=== PATIENT | male | born 1935 | race Caucasian/White ===

== ENCOUNTER 2021-01-02 18:58 | Inpatient (IN) | payer OTHER, SELFPAY ==
[~2021-01-02] VITALS: Ht 180.3 cm; Wt 85.1 kg
--- NOTE | 2021-01-02 19:01 | NUR ---
PT BIB AMBULANCE FOR COMPLAINTS OF RIGHT UPPER TOOTH PAIN SINCE LAST WEEK. 10 PAIN WHEN BITING DOWN. PT IS A&OX4 AND JUST WANTS THE PAIN TO GO AWAY. PT HAS HX OF HTN AND DIABETES
--- NOTE | 2021-01-02 19:02 | NUR ---
Patient to ER bed 03 to gown for evaluation. Side rails up.
[2021-01-02 19:03] VITALS: BP_SYST 121
--- NOTE | 2021-01-02 19:03 | NUR ---
ER at bedside examining patient.
[2021-01-02] MEDS ORDERED: NACL 0.9% 1,000 ML IV ONE (19:15)
[2021-01-02 19:31] LABS: BASOPHILS # (AUTO) 0.1 K/uL (0.0-0.2); BASOPHILS % (AUTO) 0.6 % (0.0-2.0); HEMATOCRIT 29.6 % (36-54); HEMOGLOBIN 9.8 g/dL (14.0-18.0); LYMPHOCYTES % (AUTO) 17.6 % (20.5-51.5); MEAN CORPUSCULAR HEMOGLOBIN 28 pg (27-31); MEAN CORPUSCULAR HGB CONC 33 % (32-36); MEAN CORPUSCULAR VOLUME 85 fL (79.0-98.0); MONOCYTES # (AUTO) 0.9 K/uL (0.0-1.0); MONOCYTES % (AUTO) 7.6 % (1.7-9.3); NEUTROPHILS # (AUTO) 8.6 K/uL (1.8-7.7); NEUTROPHILS % (AUTO) 74.2 % (40.0-70.0); PLATELET COUNT (AUTO) 203 K/uL (130-430); RED BLOOD CELL COUNT(AUTO) 3.49 MIL/uL (4.2-6.2); RED CELL DISTRIBUTION WIDTH 17.5 % (9.0-15.0); WHITE BLOOD COUNT (AUTO) 11.6 K/uL (4.8-10.8)
[2021-01-02 19:40] LABS: ANION GAP 8 (5-15); CHLORIDE 100 mmol/L (98-107); CREATININE 1.63 mg/dL (0.55-1.30); GLUCOSE 111 mg/dL (70-99); POTASSIUM 4.9 mmol/L (3.5-5.1); SODIUM SERUM 133 mmol/L (136-145); UREA NITROGEN, BLOOD 25 mg/dL (8-21)
[2021-01-02 19:46] LABS: ALANINE AMINOTRANSFERASE 21 U/L (12-78); ALBUMIN 2.6 g/dL (3.4-4.8); ASPARTATE AMINOTRANSFERASE 54 U/L (10-37); TOTAL BILIRUBIN 1.3 mg/dL (0.0-1.0)
[2021-01-02 19:55] LABS: INR 1.3 (0.80-1.20); PROTHROMBIN TIME 13.3 SECS (9.5-12.5)
[2021-01-02 21:12] LABS: BILIRUBIN,URINE NEGATIVE (NEGATIVE); BLOOD, URINE NEGATIVE (NEGATIVE); CLARITY/URINE CLEAR (CLEAR); COLOR,URINE YELLOW (YELLOW); GLUCOSE,URINE NEGATIVE (NEGATIVE); KETONES,URINE NEGATIVE (NEGATIVE); LEUKOCYTE ESTERASE ,URINE NEGATIVE (NEGATIVE); NITRITE, URINE NEGATIVE (NEGATIVE); PH,URINE 5.5 (5.0-8.0); PROTEIN URINE TRACE (NEGATIVE); UROBILINOGEN,URINE 0.2 (0.2-1.0)
[2021-01-02 21:29] LABS: BACTERIA,URINE FEW /HPF (None Seen); RBC,URINE NONE SEEN /HPF (0-3); WBC,URINE 0-3 /HPF (0-3)
[2021-01-02 21:30] LABS: MUCUS,URINE 1+ /LPF (None Seen)
--- NOTE | 2021-01-02 22:00 | NUR ---
Patient will be admitted to care of dr. espinoza. Admitted to telemetry unit. Will go to room 104A. Belongings list completed. Complete and up to date summary report printed. SBAR report to be given at bedside with opportunity for questions.
[2021-01-02] MEDS ORDERED: cefTRIAXone 1 GM in D5W 50 ML IV ONE (22:15)
[2021-01-02] MEDS ORDERED: cefTRIAXone 1 GM VIAL ONE (22:24)
--- NOTE | 2021-01-02 22:41 | NUR ---
PT IS FULL CODE
--- NOTE | 2021-01-02 22:53 | NUR ---
pts belongsings list done
--- NOTE | 2021-01-02 22:53 | NUR ---
pt does not know all medications, but states he takes about 6-8
--- NOTE | 2021-01-02 22:55 | NUR ---
Transfer to telemetry via ACLS protocol. Licensed nurse present. IV present no signs or symptoms of infiltration.
--- NOTE | 2021-01-02 23:00 | NUR ---
pt.received via the er-dept.pt.presents general weakness/sob per pt.pt.presents iv access intact;location;rt.forearm. iv lock. v/s assessed values wnl.o2-sat%=98%@room air.activity status;bedrest/oob as tolerated.urinal provided to the pt.call light/ telephone presented to the pt.call light explained to pt.fall risk band applied.bed alarm engaged.diet status;cardiac. call light/telephone placed w/in access of the pt.
[2021-01-02 23:15] VITALS: BP_SYST 150
[2021-01-03] MEDS ORDERED: NALOXONE HCL 0.4 MG/ML AMP (NARCAN) IVP PRN
[2021-01-03] MEDS ORDERED: HYDROcodone/ACETAMIN 5-325 MG TAB (NORCO/ VICODIN) PO PRN
[2021-01-03] MEDS ORDERED: ACETAMINOPHEN 325 MG TABLET PO PRN
[2021-01-03] MEDS ORDERED: ALBUTEROL SULFATE 0.083% 2.5 MG/3 ML VIAL.NEB INH PRN
--- NOTE | 2021-01-03 | NUR ---
pt.assessed.v/s assessed values w/in normal limits.no c/o pain,nausea.no requests posited@this hour.pt.assessed for cleanliness. pt.repositioned.general status stable.respiratory status stable.i have attended to the urinal placed w/in access of the pt.call light/telephone places w/in access of the pt.
[2021-01-03 00:11] VITALS: BP_SYST 145
--- NOTE | 2021-01-03 02:00 | NUR ---
pt.assessed.pt.presents quiescent affect;calm,somnolent.per flacc pain mgx pt.absent facial grimaces/body posturing. pt.assessed for cleanliness.pt.repositioned.general status stable.respiratory status stable.i have attended to the urinal. placed w/in access of the pt.call light/telephone placed w/in access of the pt.
[2021-01-03 03:43] VITALS: BP_SYST 145
--- NOTE | 2021-01-03 04:00 | NUR ---
pt.assessed.pt.presents quiescent affect;calm,somnolent.per flacc pain mgx pt.absent facial grimaces/body posturing. pt.assessed for cleanliness.pt.repositioned.call light/telephone placed w/in access of the pt.i have attended to the urinal.placed w/in access of the pt.
[2021-01-03 06:27] LABS: ALANINE AMINOTRANSFERASE 22 U/L (12-78); ALBUMIN 2.4 g/dL (3.4-4.8); ANION GAP 7 (5-15); ASPARTATE AMINOTRANSFERASE 44 U/L (10-37); CALCIUM 7.6 mg/dL (8.4-11.0); CHLORIDE 102 mmol/L (98-107); CREATININE 1.52 mg/dL (0.55-1.30); GLUCOSE 106 mg/dL (70-99); POTASSIUM 3.8 mmol/L (3.5-5.1); SODIUM SERUM 135 mmol/L (136-145); TOTAL BILIRUBIN 1.1 mg/dL (0.0-1.0); UREA NITROGEN, BLOOD 23 mg/dL (8-21)
[2021-01-03 06:28] LABS: BASOPHILS # (AUTO) 0.1 K/uL (0.0-0.2); BASOPHILS % (AUTO) 0.6 % (0.0-2.0); HEMOGLOBIN 9.3 g/dL (14.0-18.0); LYMPHOCYTES # (AUTO) 2.3 K/uL (1.0-5.5); LYMPHOCYTES % (AUTO) 19.8 % (20.5-51.5); MEAN CORPUSCULAR HEMOGLOBIN 28 pg (27-31); MEAN CORPUSCULAR HGB CONC 33 % (32-36); MEAN CORPUSCULAR VOLUME 85 fL (79.0-98.0); MONOCYTES # (AUTO) 0.8 K/uL (0.0-1.0); MONOCYTES % (AUTO) 7.4 % (1.7-9.3); NEUTROPHILS # (AUTO) 8.3 K/uL (1.8-7.7); NEUTROPHILS % (AUTO) 72.2 % (40.0-70.0); PLATELET COUNT (AUTO) 186 K/uL (130-430); RED BLOOD CELL COUNT(AUTO) 3.28 MIL/uL (4.2-6.2); RED CELL DISTRIBUTION WIDTH 17.3 % (9.0-15.0); WHITE BLOOD COUNT (AUTO) 11.5 K/uL (4.8-10.8)
--- NOTE | 2021-01-03 06:33 | NUR ---
Nutrition Update Eleuterio Scale 17 noted. Pt admitted for Elevated D-Dimer, CHF Diet: Cardiac BMI: 24.9 kg/m2 RD to follow per nutrition care standards.
--- NOTE | 2021-01-03 06:45 | NUR ---
pt.assessed.pt.assessed for cleanliness.pt.repositioned.urinal measured placed w/in access of the pt.no c/o pain,nausea. general status stable.respiratory status stable;unlabored:02-sat%=98%.call light/telephone placed w/in access of the pt.
--- NOTE | 2021-01-03 08:30 | NUR ---
Opening note Patient is resting in bed A&O x4 no complaint of pain or discomfort, no signs or symptoms of respiratory distress. IV dislodged, D/C'd and placed clean and dry dressing. Educated patient on plan of care and call light system, patient verbalized understanding will reenforce teaching. Bed is in lowest position, call light within reach, fall and aspiration precautions are in place. Will continue to monitor
[2021-01-03 08:42] VITALS: BP_SYST 108
[2021-01-03] MEDS ORDERED: LIP10 PO (11:19)
[2021-01-03] MEDS ORDERED: ASPI-858 PO (11:19)
[2021-01-03] MEDS ORDERED: POTA20TA83 PO (11:19)
[2021-01-03] MEDS ORDERED: METO25TA3 PO (11:19)
[2021-01-03] MEDS ORDERED: APIX5TAB4 PO (11:19)
[2021-01-03] MEDS ORDERED: FER300L PO (11:22)
[2021-01-03] MEDS ORDERED: OMEP40CA13 PO (11:22)
[2021-01-03 11:26] VITALS: BP_SYST 116
[2021-01-03] MEDS: NORMAL SALINE 5 ML DISP.SYRIN IVF SCH ×2 (14:02→23:33)
[2021-01-03 15:16] VITALS: BP_SYST 105
--- NOTE | 2021-01-03 16:04 | NUR ---
PAGED PAGED SHANNAN FOLEY AT [phone] SPOKE WITH MARLON.
--- NOTE | 2021-01-03 17:31 | NUR ---
IV Re-insertion Restarted on left wrist 22G . Successful after 1 attempts. Will observe for any signs of infiltration. Informed Primary RN - Bettina.
--- NOTE | 2021-01-03 18:13 | NUR ---
RN note Patient informed me that he has an infection in his tooth on the right side, claims it was swollen for the past couple of days. says swelling went down after receiving antibiotics when admitted.
--- NOTE | 2021-01-03 19:15 | NUR ---
OPENING NOTE BEDSIDE REPORT RECEIVED FROM DAYSHIFT NURSE. PATIENT RECEIVED LYING IN BED, AWAKE, NO S/S OF ACUTE DISTRESS NOTED. PATIENT DENIES PAIN. BREATHING EVEN AND UNLABORED. NO SOB. HOB RAISED. IV SITE PATENT, NO SIGNS OF INFILTRATION OR INFECTION NOTED. CALL LIGHT WITH PATIENT, DEMONSTRATED BACK PROPER USE. BED ALARM ON. BED IS LOCKED AND AT LOWEST POSITION. WILL CONTINUE TO MONITOR.
[2021-01-03 20:00] VITALS: BP_SYST 112
--- NOTE | 2021-01-03 20:04 | NUR ---
SPOKE WITH DR QUINTANA RE: OBS AND MED RECON INFORMED DR QUINTANA THAT TONIGHT WILL BE PATIENT'S 2ND MIDNIGHT ON THE FLOOR, MD REPLIED " I THINK THEY IT IS OK FOR TWO NIGHTS OBS". WILL INFORM CHARGE NURSE. ALSO DR QUINTANA INFORMED THAT [facility] WAS PUT IN BY DAY SHIFT, DR QUINTANA SAID SHE WILL LOOK AT IT.
[2021-01-03] MEDS ORDERED: cefTRIAXone 1 GM IVPB PREMIX 50 ML IV ONE (20:11)
[2021-01-03] MEDS ORDERED: VANCOMYCIN HCL 1000 MG/VIAL IV ONE (20:12)
[2021-01-03] MEDS: ATORVASTATIN 10 MG TABLET PO SCH (20:42)
[2021-01-03] MEDS: METOPROLOL SUCCINATE 25 MG TAB.SR.24H (TOPROL XL) PO SCH (20:43)
[2021-01-03] MEDS: VANCOMYCIN HCL 1,000 MG in NS 250 ML IV SCH (20:48)
--- NOTE | 2021-01-03 20:48 | NUR ---
IV ANTIBIOTIC/PRIMARY NS BAG 50ML NS BAG TAKEN FROM PYXIS AND USED PRIMARY BAG, STARTED AT THIS TIME. SCHEDULED VANCOMYCIN 1GM IVPB, STARTED AT THIS TIME, INFUSING WELL, IV SITE PATENT.
[2021-01-03] MEDS: APIXABAN 2.5 MG TABLET PO SCH (20:52)
[2021-01-03] MEDS ORDERED: cefTRIAXone 1 GM IVPB PREMIX 50 ML IV SCH (22:30)
--- NOTE | 2021-01-03 23:34 | NUR ---
ROCEPHIN SCHEDULED ROCEPHIN 1GM IVPB STARTED AT THIS TIME, INFUSING WELL.
[2021-01-04 01:05] VITALS: BP_SYST 102
[2021-01-04] MEDS: NORMAL SALINE 5 ML DISP.SYRIN IVF SCH ×3 (05:54→21:15)
--- NOTE | 2021-01-04 06:32 | NUR ---
CLOSING NOTE PATIENT IN BED, SLEEPING, NO S/S OF ACUTE DISTRESS NOTED. BREATHING EVEN AND UNLABORED. HOB RAISED. IV SITE PATENT, NO SIGNS OF INFILTRATION OR INFECTION NOTED. SKIN WARM AND DRY TO TOUCH. ALL NEEDS MET THROUGHOUT SHIFT. FALL, SAFETY PRECAUTIONS MAINTAINED THROUGHOUT SHIFT. WILL CONTINUE TO MONITOR UNTIL PATIENT CARE IS ENDORSED TO ONCOMING DAYSHIFT NURSE.
[2021-01-04] MEDS ORDERED: OMEPRAZOLE Non-Formulary 20 MG CAPSULE.DR PO SCH (07:00)
[2021-01-04 07:33] VITALS: BP_SYST 129
--- NOTE | 2021-01-04 07:36 | NUR ---
OPENING NOTES PATIIENT AAOX 4. WANTS TO WALK INSIDE THE ROOM BEFORE VITALS SIGNS TAKEN. STABLE AND AFEBRILE. HAS SL AT THE RIGHT FOREARM #20 PATENT'DRY. CALL LIGHTS WITHIN REACH. BED IN LOW POSITION, ALARMED AND LOCKED. INFORMED PATIENT TO CALL FOR ASSISTANCE.
[2021-01-04] MEDS: ASPIRIN 325 MG TABLET PO SCH (08:11)
[2021-01-04] MEDS: PANTOPRAZOLE SODIUM 40 MG TAB PO SCH (08:12)
[2021-01-04] MEDS: ATORVASTATIN 10 MG TABLET PO SCH ×2 (08:12→20:13)
[2021-01-04] MEDS: METOPROLOL SUCCINATE 25 MG TAB.SR.24H (TOPROL XL) PO SCH ×2 (08:13→20:16)
[2021-01-04] MEDS: APIXABAN 2.5 MG TABLET PO SCH ×2 (08:13→20:17)
[2021-01-04 11:21] VITALS: BP_SYST 114
--- NOTE | 2021-01-04 12:16 | NUR ---
Consultation page Consultation called for Dr Garcia and s/Kolton kohler
--- NOTE | 2021-01-04 13:27 | NUR ---
Wool Hat Forming Machine Tender DIESEL ENGINE ASSEMBLER first met with Rn. Devine who stated pt is coherent and will be able to participate an interview. DIESEL ENGINE ASSEMBLER received a referral from Dr. Garibay to see pt. for director of social work. DIESEL ENGINE ASSEMBLER also received a referral from Ingrid Biswas stating pt. is suicidal. DIESEL ENGINE ASSEMBLER introduced self to pt. who was sitting upright eating lunch. Pt. stated he wanted to go home. DIESEL ENGINE ASSEMBLER confirmed pts. demographics. Pt. resides with his with Dementia whom he cares for. Also in the home is his adult daughter who is legally blind and gets dialysis. DIESEL ENGINE ASSEMBLER asked pt. about his support system. Pt. stated his granddaughter, Krys Ramesh lives about 1 mile away, (or 896) and pts. mn-rpi-fj-law also lives nearby are a support system. Both come and visit and check on pt. and . Pt. added Krys is the caregiver for pts. adult daughter, comes to provide care as needed. DIESEL ENGINE ASSEMBLER asked pt. is he has ever been treated or ever been Dx. with any mental illness, depression, anxiety. Pt. stated no. DIESEL ENGINE ASSEMBLER asked pt. if he has ever felt suicidal.Pt. stated he has not. Pt. stated he did not have any questions or needs. DIESEL ENGINE ASSEMBLER will remain available as needed.
[2021-01-04 13:30] VITALS: BP_SYST 116
--- NOTE | 2021-01-04 13:41 | NUR ---
Dietitian Recommendations * Recommend: CCHO, cardiac diet w/ Glucerna BID (chocolate & strawberry) (ONS provides 360 kcals/day & 20g protein/day) * Encourage increase PO intakes Please see Nutritional Assessment for details. WINSOME, RD
[2021-01-04] MEDS: VANCOMYCIN HCL 1,000 MG in NS 250 ML IV SCH (18:12)
--- NOTE | 2021-01-04 19:29 | NUR ---
ENDORSED TO INCOMING NURSE. BRIAN VENCES/TEJ VENCES.
--- NOTE | 2021-01-04 19:30 | NUR ---
OPENING NOTE Received report from day shift RN. Pt is resting in bed. A/O x 4. Breathing is even and unlabored. Does not complain of pain at this time. No s/s of respiratory distress. IV site is intact and patent. Fall and safety precautions are in place with the bed in the lowest position and call light within reach. Will continue to monitor.
[2021-01-04 20:00] VITALS: BP_SYST 104
[2021-01-04] MEDS: AMPICILLIN SODIUM/SULBACTAM NA 1.5 GM in NS 50 ML IV SCH (21:14)
[2021-01-04 23:55] VITALS: BP_SYST 116
[2021-01-05] MEDS: NORMAL SALINE 5 ML DISP.SYRIN IVF SCH ×3 (06:29→21:14)
[2021-01-05] MEDS: AMPICILLIN SODIUM/SULBACTAM NA 1.5 GM in NS 50 ML IV SCH ×3 (06:29→21:13)
--- NOTE | 2021-01-05 06:45 | NUR ---
CLOSING NOTE Pt is resting in bed. No s/s of respiratory distress noted. IV site is intact and patent. No complaints of pain at this time. Fall and safety precautions are in place with the bed alarm on, bed in the lowest position, and call light within reach. All needs met throughout shift. Will continue to monitor until endorsed to day shift RN.
[2021-01-05 08:00] VITALS: BP_SYST 99
--- NOTE | 2021-01-05 08:11 | NUR ---
OPENING NOTES AWAKE IN BED, ALERT AND ORIENTED. NO SHORTNESS OF BREATH ON ROOM AIR. DENIES ANY PAIN. IV. ACCESS INTACT. PATIENT REPORTED AN EPISODE OF BLACK STOOLS IN THE MORNING AND SUSPECTS BLEEDING. INSTRUCTED PATIENT TO SHOW IT TO NURSE NEXT TIME, VERBALIZED UNDERSTANDING. FALL AND SAFETY CHECKS DONE. CALL LIGHT WITHIN REACH. WILL MONITOR.
[2021-01-05] MEDS: METOPROLOL SUCCINATE 25 MG TAB.SR.24H (TOPROL XL) PO SCH ×2 (09:00→20:32)
[2021-01-05] MEDS: ASPIRIN 325 MG TABLET PO SCH (09:14)
[2021-01-05] MEDS: ATORVASTATIN 10 MG TABLET PO SCH ×2 (09:15→20:32)
[2021-01-05] MEDS: PANTOPRAZOLE SODIUM 40 MG TAB PO SCH (09:15)
[2021-01-05] MEDS: APIXABAN 2.5 MG TABLET PO SCH ×2 (09:19→20:33)
--- NOTE | 2021-01-05 10:09 | NUR ---
SS notes: BUILDING MAINTENANCE SUPERVISOR received a suicide referral from Dr. Garibay dated 01/03/21, but there was no perinatal social worker on shfit until 01/04. BUILDING MAINTENANCE SUPERVISOR met with with pt. bedside who was sitting upright eating. Pt. was friendly, talkative and easily participated in this interview. Pt. confirmed the demographics on the facesheet. He wanted to add his granddaughter, Krys Ramesh as an emergency contact, . Pt. stated he is 85 and getting tired. He has his support system that consists of his granddaughter, Krys and his db-upv-if-law. Both reside about a mile away and check on pt. and who has altzhiemers on a regular basis. Pt. also resides with his adult daughter who is blind and receives dialysis. Krys is pts. daughters caregiver. When asked if pt. has been dx. with depression or anxiety, pt. stated no, but as he gets older and with his own health issues, he finds it more challenging to care for everyone.BUILDING MAINTENANCE SUPERVISOR asked if pt. has ever felt suicidal. Pt stated he has not. BUILDING MAINTENANCE SUPERVISOR asked how he was feeling today. Pt. stated he just needs to get home to take care of bills, house ... BUILDING MAINTENANCE SUPERVISOR asked pt. if he ever needed thearpy. Pt. said he has not paticpaed in any. BUILDING MAINTENANCE SUPERVISOR told pt. how to access his mental health services by contacting his health insurance providers and begin the process of accessing these stated services. Pt. thanked BUILDING MAINTENANCE SUPERVISOR. Pt. asked for any advice. BUILDING MAINTENANCE SUPERVISOR shared with pt. he has a good support system and he should not hesitate to ask for help. Pt. expressed gratitude. BUILDING MAINTENANCE SUPERVISOR will remain available as needed.
[2021-01-05 12:04] VITALS: BP_SYST 100
--- NOTE | 2021-01-05 12:14 | NUR ---
AGITATION PATIENT HAS BEEN MOVING A LOT IN BED, EVEN WITH ATIVAN ADMINISTRATION FROM REBEAMER NURSE. PATIENT NEEDS AN EEG DONE. HALDOL ADMINISTERED VIA IM. LOAD TEST MECHANIC NOW AT BEDSIDE. Addendum: 01/05/21 at 1216 by Neyda Soto RN ENTERED NOTES ON THE WRONG PATIENT
--- NOTE | 2021-01-05 14:01 | NUR ---
CONSULTATION REASON FOR CONSULT: RULE OUT ENDOCARDITIS CONSULTING PHYSICIAN: SISSY HOANG ORDERED BY: CHINYERE SPOKE WITH FRED [phone]
[2021-01-05 15:49] VITALS: BP_SYST 112
--- NOTE | 2021-01-05 19:30 | NUR ---
OPENING NOTE Received report from day shift RN. Pt is lying in bed resting. A/O x 4. No s/s of respiratory distress noted. IV site is intact and patent. Fall and safety precautions are in place with the bed alarm on, in lowest position, and call light within reach. Will continue to monitor.
[2021-01-05 20:00] VITALS: BP_SYST 108
--- NOTE | 2021-01-05 23:00 | NUR ---
RN ROUND: PT RESTING IN BED, NO S/S OF ACUTE DISTRESS NOTED. BREATHING IS EVEN AND UNLABORED TO ROOM AIR. SAFETY AND FALL PRECAUTIONS ARE IN PLACE. CALL LIGHT IS WITHIN REACH. WILL MONITOR.
[2021-01-06 00:47] VITALS: BP_SYST 115
[2021-01-06 04:40] LABS: BASOPHILS # (AUTO) 0.1 K/uL (0.0-0.2); BASOPHILS % (AUTO) 1.6 % (0.0-2.0); EOSINOPHILS # (AUTO) 0.2 K/uL (0.0-0.4); EOSINOPHILS % (AUTO) 4.7 % (0.0-4.0); HEMATOCRIT 28.5 % (36-54); HEMOGLOBIN 9.2 g/dL (14.0-18.0); LYMPHOCYTES # (AUTO) 1.9 K/uL (1.0-5.5); LYMPHOCYTES % (AUTO) 40.2 % (20.5-51.5); MEAN CORPUSCULAR HEMOGLOBIN 28 pg (27-31); MEAN CORPUSCULAR HGB CONC 32 % (32-36); MEAN CORPUSCULAR VOLUME 86 fL (79.0-98.0); MONOCYTES # (AUTO) 0.5 K/uL (0.0-1.0); MONOCYTES % (AUTO) 11.4 % (1.7-9.3); NEUTROPHILS % (AUTO) 42.1 % (40.0-70.0); PLATELET COUNT (AUTO) 224 K/uL (130-430); RED BLOOD CELL COUNT(AUTO) 3.32 MIL/uL (4.2-6.2); WHITE BLOOD COUNT (AUTO) 4.8 K/uL (4.8-10.8)
[2021-01-06 04:58] LABS: ALANINE AMINOTRANSFERASE 27 U/L (12-78); ALBUMIN 2.3 g/dL (3.4-4.8); ANION GAP 4 (5-15); ASPARTATE AMINOTRANSFERASE 49 U/L (10-37); CALCIUM 7.8 mg/dL (8.4-11.0); CHLORIDE 107 mmol/L (98-107); GLUCOSE 110 mg/dL (70-99); POTASSIUM 4.7 mmol/L (3.5-5.1); SODIUM SERUM 139 mmol/L (136-145); TOTAL BILIRUBIN 0.5 mg/dL (0.0-1.0); UREA NITROGEN, BLOOD 17 mg/dL (8-21)
[2021-01-06] MEDS: AMPICILLIN SODIUM/SULBACTAM NA 1.5 GM in NS 50 ML IV SCH ×3 (05:13→21:10)
[2021-01-06] MEDS: NORMAL SALINE 5 ML DISP.SYRIN IVF SCH ×3 (05:14→21:10)
--- NOTE | 2021-01-06 06:42 | NUR ---
CLOSING NOTE Pt is awake lying in bed. No s/s of respiratory distress noted. A/O x 4. No complaints of pain at this time. Fall and safety precautions are in place with bed in lowest position, call light within reach, and bed alarm on. Will continue to monitor until endorsed to day shift RN.
--- NOTE | 2021-01-06 08:00 | NUR ---
AM NOTES RECEIVED PT IN BED. EATING BREAKFAST. VITALS STABLE. RES EVEN AND UNLABORED. DENIES ANY PAIN OR ORTHER DISCOMFORT. SAFETY/FALL PRECAUTIONS IN PLACE. BED LOCKED AND IN LOW POSITION. CALL LIGHT WITHIN REACH. POC DISCUSSED WITH PT. PT VERBALIZED UNDERSTANDING. WILL CONITNUE TO MONITOR
[2021-01-06 08:38] VITALS: BP_SYST 123
[2021-01-06] MEDS: ASPIRIN 325 MG TABLET PO SCH (09:52)
[2021-01-06] MEDS: PANTOPRAZOLE SODIUM 40 MG TAB PO SCH (09:54)
[2021-01-06] MEDS: METOPROLOL SUCCINATE 25 MG TAB.SR.24H (TOPROL XL) PO SCH ×2 (09:55→20:51)
[2021-01-06] MEDS: ATORVASTATIN 10 MG TABLET PO SCH ×2 (09:55→20:50)
[2021-01-06] MEDS: APIXABAN 2.5 MG TABLET PO SCH ×2 (09:56→20:49)
[2021-01-06 12:38] VITALS: BP_SYST 143
--- NOTE | 2021-01-06 15:38 | NUR ---
OPTSE[employer] QUAN MS JIMMY COBB WAS CALLED, RE: ARRANGE TRANSFER TO [facility] FOR [facility]BEY. LEFT A VOICE MESSAGE. Addendum: 01/06/21 at 1548 by Mary Nogueira MO/ OPTSEEMA QUAN AIRPORT MAINTENANCE LABORER, TODAY IS MS QUIROZ BLAINEJULIAN. ACCDG TO THE CM, TRANSFER TO [facility] CANNOT BE ARRANGED UNTIL DR Marbella HOANG WILL SCHEDULE THE OBEY.
--- NOTE | 2021-01-06 15:48 | NUR ---
called and spoke with Juhi at [facility] admitting, patient has not been scheduled or added to schedule at [facility] for OBEY. patient cannot be transfer to [facility] until added to scheduled. Dr. Rice need to schedule patient so we can get a bed to transfer.
[2021-01-06] MEDS ORDERED: AUG875 PO ×2 (16:24)
[2021-01-06 16:37] VITALS: BP_SYST 110
--- NOTE | 2021-01-06 19:20 | NUR ---
OPENING NOTES RECEIVED PATIENT RESTING, NO SIGNS OF SOB AT THIS TIME. CALL LIGHT WITHIN REACH, BED ALARM ON, BED AT LOWEST POSITION, BED LOCKED. FALL, RESPIRATORY, ASPIRATION, AND SAFETY PRECAUTIONS IN PLACE. PATIENT DEMONSTRATES PROPER CALL LIGHT USAGE. RECEIVED REPORT THAT PATIENT CANNOT DISCHARGE YET DR. Marbella HOANG NEEDS TO MAKE AN [facility]NAG[facility]. WILL CONTINUE TO MONITOR.
--- NOTE | 2021-01-06 19:26 | NUR ---
Closing Note CLOSING NOTES ALERT AND ORIENTED. NO SHORTNESS OF BREATH ON ROOM AIR. DENIES ANY PAIN. IV. ACCESS INTACT. ALL NEEDS MET. FALL AND SAFETY CHECKS DONE. CALL LIGHT WITHIN REACH. WILL ENDORSE TO NIGHT NURSE.
[2021-01-06 20:00] VITALS: BP_SYST 118
[2021-01-07 00:28] VITALS: BP_SYST 138
--- NOTE | 2021-01-07 03:02 | NUR ---
PATIENT RESTING, NO SIGNS OF ACUTE RESPIRATORY DISTRESS NOTED. WILL CONTINUE TO MONITOR.
[2021-01-07] MEDS: NORMAL SALINE 5 ML DISP.SYRIN IVF SCH ×2 (05:57→13:53)
[2021-01-07] MEDS: AMPICILLIN SODIUM/SULBACTAM NA 1.5 GM in NS 50 ML IV SCH ×2 (05:57→13:53)
--- NOTE | 2021-01-07 06:51 | NUR ---
CLOSING NOTES PATIENT RESTING, NO SIGNS OF DISTRESS THROUGHOUT SHIFT. CALL LIGHT WITHIN REACH, BED ALARM ON, BED AT LOWEST POSITION, BED LOCKED. FALL, RESPIRATORY, ASPIRATION, AND SAFETY PRECAUTIONS IN PLACE THROUGHOUT SHIFT. PATIENT DEMONSTRATED PROPER CALL LIGHT USAGE. WILL ENDORSE TO AM SHIFT THAT PATIENT CANNOT DISCHARGE YET DR. Marbella HOANG NEEDS TO [facility]NA[facility]. ALL NEEDS MET THROUGHOUT SHIFT. WILL ENDORSE CARE TO ONCOMING SHIFT.
--- NOTE | 2021-01-07 07:40 | NUR ---
Patient eating breakfast at this time. Denies any pain. Patient stable at this time.
[2021-01-07 08:00] VITALS: BP_SYST 107
[2021-01-07] MEDS: METOPROLOL SUCCINATE 25 MG TAB.SR.24H (TOPROL XL) PO SCH (09:00)
[2021-01-07] MEDS: APIXABAN 2.5 MG TABLET PO SCH (09:01)
[2021-01-07] MEDS: PANTOPRAZOLE SODIUM 40 MG TAB PO SCH (09:02)
[2021-01-07] MEDS: ASPIRIN 325 MG TABLET PO SCH (09:02)
[2021-01-07] MEDS: ATORVASTATIN 10 MG TABLET PO SCH (09:02)
--- NOTE | 2021-01-07 09:03 | NUR ---
Scheduled po medications given per order. Patient stable at this time with no complaint of pain. Addendum: 01/07/21 at 922 by Valeria Gruber RN [phone]: Emptied 250mls of clear, yellow urine from urinal.
--- NOTE | 2021-01-07 09:50 | NUR ---
Patient resting comfortably in bed with Dr. Rita Rice at bedside. Patient stable at this time with no complaint of pain.
[2021-01-07] MEDS ORDERED: AMOX-423 PO (10:02)
--- NOTE | 2021-01-07 10:40 | NUR ---
[place] QUAN FLY MAKER MS RICHIE BOYCE WAS CALLED, RE: FOR PT AND HOME HEALTH. SHE ALSO INFORMED ME THAT FRONT WHEEL WALKER WILL BE DELIVERED HERE IN THE HOSP.
--- NOTE | 2021-01-07 10:43 | NUR ---
Patient ambulating in hallway with walker and Andrew, PT. Patient stable
--- NOTE | 2021-01-07 10:50 | NUR ---
Paged Dr. Hunt for ID clearance. Received call back from doctor; per doctor ok to d/c home.
--- NOTE | 2021-01-07 11:09 | NUR ---
patient home PT & safety ordered awaiting for provider agency to be assigned. [facility] will be deliver to bedside today between 2:00-6:00PM by [employer]
--- NOTE | 2021-01-07 11:10 | NUR ---
patient PDV has been scheduled please provide copy to patient . Patient: JAY GEORGE Provider: MERLIN HYDE MD Provider Date and Time: 01/10/2021 04:00 PM Appointment Type: PCP Appointment
--- NOTE | 2021-01-07 11:11 | NUR ---
home PT & safety eval to be provided by [facility] [phone] auth# [id number]
--- NOTE | 2021-01-07 11:17 | NUR ---
CM IP ADM and DC Summary Weekend/Holiday/Observation/Short Stay Last Saved By: Stefani Deloris Last Saved On: 01/07/2021 11:17 AM (PT) Created By: Steph Ann Created On: 01/03/2021 11:23 AM (PT) Patient Information Patient Name: JAY GEORGE Address: [address] [place] [address] SSN: : 1935 (age 85 years) Work Phone: [phone] Gender: Male Alternative Phone: Marital Status: Other Admission Information: Weekend/Holiday/Observation/Short Stay Admission Date 01/02/2021 12:00 AM (PT) Admitting Facility Answers: *[facility] [[id number]] Was the patient's phone/address verified with the patient? Answers: Yes (no change) Was the patient's doctor (PCP) verified with the patient? Answers: Yes (no change) Home Setting: Check All that Apply Answers: Private Home Notes: with . unable to reach or leave a message on the only number that is available. they have not set up VM Preferred appointment day if available: Answers: Any Day OK Preferred appointment time if available: Question is skipped due to answer to Preferred appointment day if available: Discharge Information: Weekend/Holidays/Observation/Short Stay Final Discharge Diagnosis: sepsis, DM,HTN, renal inssuficiency , Hx CABG Discharging Hospitalist: Dr. Garibay/ Dwayne Date Patient was Discharged/ 01/07/2021 Discharge Disposition Answers: Home with HH Name of facility discharged to or Vendor providing service [facility] Is the Patient Discharging to a SNF/LTAC/ARU? Answers: No Is the Patient Discharging to Hospice? Answers: No Post Discharge Services/Programs Answers: Home Health Notes: Home PT & safety DME Notes: [facility] Discussed Discharge Planning with Patient, the Patient agrees that voice message with PHI may be left: Answers: No Is it okay to leave a voice message with the patient or best contact centre supervisor regarding their PDV if they are unable to be reached? (patient is approving this one time voice message) Answers: No PDV and Appointments PDV is scheduled with one of the following : If patient ACTIVE in any CCP Program, CCP completes the PDV. (Exception: R6 patient ACTIVE in Palliative Care, schedule PDV with PCP). If patient referred to a House Call Vendor (community specific), the Vendor completes the PDV. SELECT ONLY ONE Answers: Primary Care Physician (PCP) Document Name of PCP (Enter date below) PDV scheduled: 01/10/2021 4:00 PM (PT) Signature Signature: Signature Date Signed: 01/07/2021 11:17 AM (PT) Signed By: Stefani Puentes Position: Inpatient Cool Roofing Installer Pager Number: [phone] (Scan) Page 1 of [phone] [employer]. [Production(ra--[phone])]
[2021-01-07 12:15] VITALS: BP_SYST 137
[2021-01-07 13:18] VITALS: BP_SYST 137
--- NOTE | 2021-01-07 13:45 | NUR ---
Routine Patient ambulated with walker to bathroom and back to bed. Patient stable at this time.
--- NOTE | 2021-01-07 13:54 | NUR ---
Scheduled IV abx given per order. Patient stable at this time.
--- NOTE | 2021-01-07 14:10 | NUR ---
Discharge instructions Both written and verbal discharge instructions given to patient. Prescription for amoxicillin given as well. Encouraged patient to follow-up with PCP in 1 week and follow-up with Dr. Belén Rice in 4 weeks (provided Dr. Rice's office ph#). Patient verbalized understanding of instructions. Patient states that he has wheelchair, walker, and cane at home. Patient stable at this time.
--- NOTE | 2021-01-07 15:10 | NUR ---
Patient resting comfortably in bed with no distress noted. Denies any pain. Peripheral IV removed intact with minimal bleeding; pressure dressing applied to site. Telemetry box removed, cleaned, and returned to city secretary.
--- NOTE | 2021-01-07 15:25 | NUR ---
Discharge Patient discharged to home in stable condition; accompanied by and son. No distress noted at time of discharge.
--- NOTE | 2021-01-16 21:13 | NUR ---
PATIENT WAS DISCHARGE ON 01/07/2021 HE WAS DC HOME WITH HOME HEALTHCARE SERVICE DISPOSITION CHANGE FROM TO
== END 2021-01-07 15:25 | disposition home or self-care (01) | DRG 871 ==
LOC: SED 18:58 → STU 22:01 → OBSVTOIN 22:01 → STU 22:31
PROVIDERS: ADMIT Internal Medicine Hospice and Palliative Medicine; ATTEND Internal Medicine Hospice and Palliative Medicine
DX: A40.8 Other streptococcal sepsis (principal); I33.0 Acute and subacute infective endocarditis; E87.1 Hypo-osmolality and hyponatremia; N39.0 Urinary tract infection, site not specified; N17.9 Acute kidney failure, unspecified; D64.9 Anemia, unspecified; K04.7 Periapical abscess without sinus; E11.9 Type 2 diabetes mellitus without complications; I11.0 Hypertensive heart disease with heart failure; Z20.822 Contact with and (suspected) exposure to COVID-19; I50.9 Heart failure, unspecified; Z95.4 Presence of other heart-valve replacement; Z79.01 Long term (current) use of anticoagulants; Z79.82 Long term (current) use of aspirin; Z79.899 Other long term (current) drug therapy; Z95.1 Presence of aortocoronary bypass graft
CPT/HCPCS: 36415; 71045; 78579; 78580-TC; 80053; 81000; 82550; 82962; 83605; 83880; 84484; 85025; 85379; 85610-TC; 85651-TC; 87040-TC; 87186-TC; 93005; 93306; 93970; 96361; 96365; 97110-GP; 97116-GP; 97163-GP; 99285; A9539; A9540; G0378; J0295; J0696; J3370; J7050